=== PATIENT | male | born 1945 | race Caucasian/White ===

== ENCOUNTER 2016-08-18 11:10 | Emergency (ER) | payer OTHER ==
[~2016-08-18] VITALS: Ht 165.1 cm; Wt 72.0 kg
[2016-08-18 11:12] VITALS: BP 178/86; PULSE 58; RESP 18; TEMP 97.8; O2SAT 96
--- NOTE | 2016-08-18 11:17 | PD ---
HPI Chief Complaint: Abdominal Pain Time Seen by Provider: 11:16 Travel History International Travel<30 days: No Contact w/Intl Traveler<30days: No Traveled to known affect area: No History of Present Illness HPI 71-year-old male visiting from [place] for the winter, presents the emergency department with week history of intermittent left lower quadrant discomfort. Patient states is getting worse over the past several days. Patient denies nausea or vomiting. Patient denies fever or chills. Patient denies urinary symptoms. Patient has a history of a colonoscopy approximately one year ago with some polyps and findings of diverticulosis but no history previously of diverticulitis. Patient denies diarrhea or bloody stools. Patient has had some increased stool. He states his appetite is normal. Patient states his pain worsens approximate 2-3 hours after eating. Patient denies increased pain with motion or riding in the car. Patient has no significant past medical history. Patient has no known drug allergies. PFSH Social History Alcohol Use: Yes Tobacco Use: No Substance Use: No Allergies-Medications (Allergen,Severity, Reaction): Coded Allergies: No Known Allergies (Unverified , 08/18/16) Reported Meds & Prescriptions Reported Meds & Active Scripts Active No Active Prescriptions or Reported Medications Review of Systems General / Constitutional: No: Fever, Chills Eyes: No: Visual changes HENT: No: Headaches Cardiovascular: No: Chest Pain or Discomfort Respiratory: No: Shortness of Breath Gastrointestinal: Positive: Abdominal Pain (see history present illness.), Changes in Bowel Habits (some increased bowel movements recently.), No: Nausea , Vomiting, Diarrhea, Hematemesis, Hematochezia, Constipation, Indigestion, Dysphagia, Loss of Appetite Genitourinary: No: Urgency, Frequency, Dysuria, Hematuria Musculoskeletal: No: Pain Skin: No Rash Neurologic: No: Weakness Psychiatric: No: Depression Endocrine: No: Polydipsia Hematologic/Lymphatic: No: Easy Bruising Physical Exam Narrative GENERAL: Patient appears in no acute distress. SKIN: Warm and dry. Normal color. Normal turgor. HEAD: Atraumatic. Normocephalic. EYES: Pupils equal and round. No scleral icterus. No injection or drainage. ENT: No nasal bleeding or discharge. Mucous membranes pink and moist. Pharynx is normal. NECK: Trachea midline. No JVD. Supple and nontender. CARDIOVASCULAR: Regular rate and rhythm. No murmurs gallops or rubs. RESPIRATORY: No accessory muscle use. Clear to auscultation. Breath sounds equal bilaterally. GASTROINTESTINAL: Abdomen soft, moderate point tenderness in the upper left lower quadrant with mild rebound, nondistended. Bowel sounds are somewhat quiet throughout. No masses appreciated. No hernias. Hepatic and splenic margins not palpable. No CVA tenderness. MUSCULOSKELETAL: Extremities without clubbing, cyanosis, or edema. No obvious deformities. NEUROLOGICAL: Awake and alert. No obvious cranial nerve deficits. Motor grossly within normal limits. Five out of 5 muscle strength in the arms and legs. Normal speech. PSYCHIATRIC: Appropriate mood and affect; insight and judgment normal. Data Data Last Documented VS Vital Signs Date Time Temp Pulse Resp B/P Pulse Ox O2 Delivery O2 Flow Rate FiO2 08/18/16 11:35 18 98 08/18/16 11:12 97.8 58 178/86 Room Air Orders Complete Blood Count With Diff (08/18/16 11:23) Comprehensive Metabolic Panel (08/18/16 11:23) Lipase (08/18/16 11:23) Lactic Acid (08/18/16 11:23) Prothrombin Time / Inr (Pt) (08/18/16 11:23) Act Partial Throm Time (Ptt) (08/18/16 11:23) Urinalysis - C+S If Indicated (08/18/16 11:23) Ct Abd/Pel W Iv Contrast(Rout) (08/18/16 11:23) Iv Access Insert/Monitor (08/18/16 11:23) Ecg Monitoring (08/18/16 11:23) Oximetry (08/18/16 11:23) NPO (08/18/16 11:23) Sodium Chlor 0.9% 1000 Ml Inj (Ns 1000 M (08/18/16 11:23) Sodium Chloride 0.9% Flush (Ns Flush) (08/18/16 11:30) Oral Contrast - Adult (08/18/16 11:48) Diatrizoate Liq ( Gastrojennifer Liq) (08/18/16 12:03) Iohexol 350 Inj (Omnipaque 350 Inj) (08/18/16 13:16) Labs Laboratory Tests Test 08/18/16 11:45 White Blood Count 4.1 TH/MM3 Red Blood Count 4.63 MIL/MM3 Hemoglobin 15.1 GM/DL Hematocrit 43.4 % Mean Corpuscular Volume 93.6 FL Mean Corpuscular Hemoglobin 32.6 PG Mean Corpuscular Hemoglobin 34.9 % Concent Red Cell Distribution Width 12.9 % Platelet Count 206 TH/MM3 Mean Platelet Volume 7.9 FL Neutrophils (%) (Auto) 46.7 % Lymphocytes (%) (Auto) 35.4 % Monocytes (%) (Auto) 13.5 % Eosinophils (%) (Auto) 3.0 % Basophils (%) (Auto) 1.4 % Neutrophils # (Auto) 1.9 TH/MM3 Lymphocytes # (Auto) 1.5 TH/MM3 Monocytes # (Auto) 0.6 TH/MM3 Eosinophils # (Auto) 0.1 TH/MM3 Basophils # (Auto) 0.1 TH/MM3 CBC Comment DIFF FINAL Differential Comment Prothrombin Time 10.5 SEC Prothromb Time International 1.0 RATIO Ratio Activated Partial 26.0 SEC Thromboplast Time Urine Color LIGHT-YELLOW Urine Turbidity CLEAR Urine pH 6.0 Urine Specific [place] 1.004 Urine Protein NEG mg/dL Urine Glucose (UA) NEG mg/dL Urine Ketones NEG mg/dL Urine Occult Blood NEG Urine Nitrite NEG Urine Bilirubin NEG Urine Urobilinogen LESS THAN 2.0 MG/DL Urine Leukocyte Esterase NEG Urine RBC LESS THAN 1 /hpf Urine WBC LESS THAN 1 /hpf Microscopic Urinalysis Comment CULT NOT INDICATED Sodium Level 140 MEQ/L Potassium Level 4.3 MEQ/L Chloride Level 104 MEQ/L Carbon Dioxide Level 29.7 MEQ/L Anion Gap 6 MEQ/L Blood Urea Nitrogen 14 MG/DL Creatinine 1.05 MG/DL Estimat Glomerular Filtration 69 ML/MIN Rate Random Glucose 90 MG/DL Lactic Acid Level 0.4 mmol/L Calcium Level 9.2 MG/DL Total Bilirubin 0.6 MG/DL Aspartate Amino Transf 19 U/L (AST/SGOT) Alanine Aminotransferase 36 U/L (ALT/SGPT) Alkaline Phosphatase 67 U/L Total Protein 7.6 GM/DL Albumin 4.4 GM/DL Lipase 112 U/L [facility] Medical Decision Making Medical Screen Exam Complete: Yes Emergency Medical Condition: Yes Differential Diagnosis Abdominal pain. Constipation. Diverticulitis. Hernia. Narrative Course Patient is medically stable at time of exam. Labs ordered including CBC, CMP, lactic acid, lipase, and urinalysis. IV access is obtained patient is given 1000 mL normal saline bolus. CT of the abdomen with IV and oral contrast was ordered. All labs are within normal limits. CT scan shows no acute findings per radiologist. Patient is felt stable to be discharged home. Patient take [id number] Tylenol or ibuprofen as needed for discomfort. Patient should follow-up with his primary care physician as needed. Patient may return to emergency Department with worsening symptoms if necessary. Diagnosis Primary Impression: Abdominal pain Qualified Code: R10.32 - Left lower quadrant pain Referrals: Primary Care Physician as needed Patient Instructions: Abdominal Pain (ED), General Instructions Additional Instructions: All labs are within normal limits. CT scan shows no acute findings per radiologist. Patient is felt stable to be discharged home. Patient take [id number] Tylenol or ibuprofen as needed for discomfort. Patient should follow-up with his primary care physician as needed. Patient may return to emergency Department with worsening symptoms if necessary. Scripts No Active Prescriptions or Reported Meds Disposition: 01 DISCHARGE HOME Condition: Stable Neymar Vanegas Aug 18, 2016 11:17
[2016-08-18] MEDS ORDERED: SODIUM CHLOR 0.9% 1000 ML INJ 1,000 ML IV SCH (11:23)
[2016-08-18] MEDS ORDERED: SODIUM CHLORIDE 0.9% FLUSH 5 ML FLUSH IVF PRN (11:30)
[2016-08-18 11:35] VITALS: RESP 18; O2SAT 98
[2016-08-18 11:54] LABS: AUTOMATED NEUTROPHIL # 1.9 TH/MM3 (1.8-7.7); BASOPHIL # 0.1 TH/MM3 (0-0.2); BASOPHIL % 1.4 % (0.0-2.0); EOSINOPHIL # 0.1 TH/MM3 (0-0.4); HEMATOCRIT 43.4 % (39.0-51.0); HEMO FLAGS DIFF FINAL; LYMPH % 35.4 % (9.0-44.0); LYMPHOCYTE # 1.5 TH/MM3 (1.0-4.8); MEAN CELL VOLUME 93.6 FL (80.0-100.0); MEAN CORPUSCULAR HEMOGLOBIN 32.6 PG (27.0-34.0); MEAN CORPUSCULAR HGB CONC 34.9 % (32.0-36.0); MONO % 13.5 % (0.0-8.0); NEUT % 46.7 % (16.0-70.0); PLATELET COUNT 206 TH/MM3 (150-450); RED BLOOD COUNT 4.63 MIL/MM3 (4.50-5.90); RED CELL DISTRIBUTION WIDTH 12.9 % (11.6-17.2); WHITE BLOOD COUNT 4.1 TH/MM3 (4.0-11.0)
[2016-08-18 11:56] LABS: BLOOD, URINE NEG (NEG); GLUCOSE,URINE NEG (NEG); KETONE, URINE NEG (NEG); NITRITE,URINE NEG (NEG); URINE COLOR LIGHT-YELLOW (YELLW/STRAW)
[2016-08-18 12:01] LABS: COMMENT (UR) CULT NOT INDICATED; CULTURE IF INDICATED CULT NOT INDICATED
--- NOTE | 2016-08-18 12:02 | PD ---
Data Data Last Documented VS Vital Signs Date Time Temp Pulse Resp B/P Pulse Ox O2 Delivery O2 Flow Rate FiO2 08/18/16 11:35 18 98 08/18/16 11:12 97.8 58 178/86 Room Air Orders Complete Blood Count With Diff (08/18/16 11:23) Comprehensive Metabolic Panel (08/18/16 11:23) Lipase (08/18/16 11:23) Lactic Acid (08/18/16 11:23) Prothrombin Time / Inr (Pt) (08/18/16 11:23) Act Partial Throm Time (Ptt) (08/18/16 11:23) Urinalysis - C+S If Indicated (08/18/16 11:23) Ct Abd/Pel W Iv Contrast(Rout) (08/18/16 11:23) Iv Access Insert/Monitor (08/18/16 11:23) Ecg Monitoring (08/18/16 11:23) Oximetry (08/18/16 11:23) NPO (08/18/16 11:23) Sodium Chlor 0.9% 1000 Ml Inj (Ns 1000 M (08/18/16 11:23) Sodium Chloride 0.9% Flush (Ns Flush) (08/18/16 11:30) Oral Contrast - Adult (08/18/16 11:48) Diatrizoate Liq ( Gastroview Liq) (08/18/16 12:03) Iohexol 350 Inj (Omnipaque 350 Inj) (08/18/16 13:16) Labs Laboratory Tests Test 08/18/16 11:45 White Blood Count 4.1 TH/MM3 Red Blood Count 4.63 MIL/MM3 Hemoglobin 15.1 GM/DL Hematocrit 43.4 % Mean Corpuscular Volume 93.6 FL Mean Corpuscular Hemoglobin 32.6 PG Mean Corpuscular Hemoglobin 34.9 % Concent Red Cell Distribution Width 12.9 % Platelet Count 206 TH/MM3 Mean Platelet Volume 7.9 FL Neutrophils (%) (Auto) 46.7 % Lymphocytes (%) (Auto) 35.4 % Monocytes (%) (Auto) 13.5 % Eosinophils (%) (Auto) 3.0 % Basophils (%) (Auto) 1.4 % Neutrophils # (Auto) 1.9 TH/MM3 Lymphocytes # (Auto) 1.5 TH/MM3 Monocytes # (Auto) 0.6 TH/MM3 Eosinophils # (Auto) 0.1 TH/MM3 Basophils # (Auto) 0.1 TH/MM3 CBC Comment DIFF FINAL Differential Comment Prothrombin Time 10.5 SEC Prothromb Time International 1.0 RATIO Ratio Activated Partial 26.0 SEC Thromboplast Time Urine Color LIGHT-YELLOW Urine Turbidity CLEAR Urine pH 6.0 Urine Specific [place] 1.004 Urine Protein NEG mg/dL Urine Glucose (UA) NEG mg/dL Urine Ketones NEG mg/dL Urine Occult Blood NEG Urine Nitrite NEG Urine Bilirubin NEG Urine Urobilinogen LESS THAN 2.0 MG/DL Urine Leukocyte Esterase NEG Urine RBC LESS THAN 1 /hpf Urine WBC LESS THAN 1 /hpf Microscopic Urinalysis Comment CULT NOT INDICATED Sodium Level 140 MEQ/L Potassium Level 4.3 MEQ/L Chloride Level 104 MEQ/L Carbon Dioxide Level 29.7 MEQ/L Anion Gap 6 MEQ/L Blood Urea Nitrogen 14 MG/DL Creatinine 1.05 MG/DL Estimat Glomerular Filtration 69 ML/MIN Rate Random Glucose 90 MG/DL Lactic Acid Level 0.4 mmol/L Calcium Level 9.2 MG/DL Total Bilirubin 0.6 MG/DL Aspartate Amino Transf 19 U/L (AST/SGOT) Alanine Aminotransferase 36 U/L (ALT/SGPT) Alkaline Phosphatase 67 U/L Total Protein 7.6 GM/DL Albumin 4.4 GM/DL Lipase 112 U/L MDM Supervised Visit with ARLET: Yes Narrative Course I, Dr. Martin, have reviewed the advance practice practioner's documentation and am in agreement, met with the patient face to face, made the diagnosis, and the medical decision making was done by me. *My assessment and Findings:71-year-old male here with complaint of one week of intermittent left lower quadrant abdominal pain, worse with oral intake. Patient states that he has a history of diverticulosis but no history of diverticulitis. Bowel movements have been regular. No nausea or vomiting. Pain is made worse with laying flat. Improved with standing. Mmild left lower quadrant and slight suprapubic discomfort on exam. Suspicious for diverticulitis, UTI, colitis and less likely appendicitis. Will obtain laboratory workup and CT imaging, these were negative. Patient reassured and discharged home. Scripts No Active Prescriptions or Reported Meds Talisha Martin MD Aug 18, 2016 12:02
[2016-08-18 12:03] LABS: PROTHROMBIN TIME - PATIENT 10.5 SEC (9.8-11.6)
[2016-08-18] MEDS ORDERED: DIATRIZOATE MEGLUM/DIATRIZOATE SOD 9 ML CUP ONE (12:03)
[2016-08-18 12:13] LABS: ANION GAP 6 MEQ/L (5-15); AST (GOT) 19 U/L (15-37); BICARBONATE 29.7 MEQ/L (21.0-32.0); BLOOD UREA NITROGEN 14 MG/DL (7-18); CHLORIDE 104 MEQ/L (98-107); GLOMERULAR FILTRATION RATE 69 ML/MIN (>89); POTASSIUM 4.3 MEQ/L (3.5-5.1); SODIUM (NA) 140 MEQ/L (136-145)
[2016-08-18 12:16] LABS: ALKALINE PHOSPHATASE 67 U/L (45-117); ALT (GPT) 36 U/L (12-78); TOTAL BILIRUBIN ADULT 0.6 MG/DL (0.2-1.0)
[2016-08-18] MEDS ORDERED: IOHEXOL 350 MG/ML 10 ML VIAL (for RAD DIAG) IV ONE (13:16)
--- NOTE | 2016-08-18 13:30 | RADRPT ---
EXAM DATE/TIME: 08/18/2016 13:11 [facility] COMPARISON: No previous studies available for comparison. INDICATIONS : Intermittent left lower quadrant pain. IV CONTRAST: 100 cc Omnipaque 350 (iohexol) IV ORAL CONTRAST: No oral contrast ingested. RADIATION DOSE: 9.02 CTDIvol (mGy) MEDICAL HISTORY : None SURGICAL HISTORY : None. ENCOUNTER: Initial ACUITY: 1 day PAIN SCALE: 0/10 LOCATION: Left lower quadrant TECHNIQUE: Volumetric scanning of the abdomen and pelvis was performed. Using automated exposure control and ad justment of the mA and/or kV according to patient size, radiation dose was kept as low as reasonably achievable to obtain optimal diagnostic quality images. FINDINGS: LOWER LUNGS: The visualized lower lungs are clear. LIVER: Tiny cyst in the dome of the liver. No evidence of suspicious mass or biliary ductal dilatation. SPLEEN: Normal size without lesion. PANCREAS: Within normal limits. KIDNEYS: Normal in size and shape. There is no mass, stone or hydronephrosis. ADRENAL GLANDS: Within normal limits. VASCULAR: Dense atherosclerotic calcification in abdominal aorta and branch vessels. No evidence of aneurysm. N o major vessel occlusion. BOWEL/MESENTERY: The stomach, small bowel, and colon demonstrate no acute abnormality. There is no free intraperitone al air or fluid. ABDOMINAL WALL: Within normal limits. RETROPERITONEUM: There is no lymphadenopathy. BLADDER: No wall thickening or mass. REPRODUCTIVE: Within normal limits. INGUINAL: There is no lymphadenopathy or hernia. MUSCULOSKELETAL: Within normal limits for patient age. CONCLUSION: No acute CT findings in the abdomen or pelvis. Miky Correa MD on August 18, 2016 at 13:23 Board Certified Radiologist. This report was verified electronically.
== END 2016-08-18 14:03 | disposition home or self-care (01) ==
LOC: NEPE 11:10
DX: R10.32 Left lower quadrant pain (principal)
CPT/HCPCS: 74177; 80053; 81001; 83605; 83690; 85025; 85610; 85730; 96360; 96361; 99284; J7030; Q9963; Q9967